=== PATIENT | male | born 1955 | race Caucasian/White ===

== ENCOUNTER → 2016-03-21 | Outpatient (CLI) | payer BC ==
[2015-12-28 07:43] VITALS: BP 134/70
[~2016-03-21] MED LIST: ASPI-482 PO; ATORVASTATIN CA80 MG PO; CONTRAST GIVEN MC PRN; CYAN10005 PO; EZET1TAB4 PO; EZET1TAB5 PO; HYDR-2666 PO; IOHEXOL 240 MG/ML 50ML VIAL. PO ONE; IOHEXOL 300 MG/ML 75 ML VIAL IV ONE; LOSA1TAB16 PO; NADO40TA PO; OLME1TAB PO; TERA5CAP3 PO
--- NOTE | 2016-03-21 10:51 | RAD ---
CT of the chest with contrast, 03/21/2016: History: Follow-up colon cancer Multidetector CT imaging was performed following an IV bolus injection of iodinated contrast material. Moderate coronary artery calcifications are present. No mediastinal or hilar adenopathy is seen. A tiny peripheral density in the lateral aspect of left upper lobe is linear in configuration and is probably a scar. No pulmonary nodule or significant infiltrate is seen. There is no evidence of pleural fluid. IMPRESSION: 1. No CT evidence of metastatic disease in the chest. 2. Moderate coronary artery disease. CT of the abdomen and pelvis with contrast, 03/21/2016: Multidetector CT imaging was performed following oral and IV administration of contrast. Comparison is made to a study from 01/23/2015. No hepatic abnormality is seen. The gallbladder is unremarkable. The pancreas shows no abnormality. The spleen is of normal size. No renal or adrenal abnormality is detected. There is moderate aortoiliac calcific plaquing without evidence of a neoplasm. No abdominal or pelvic adenopathy is seen. There passed been a partial colectomy on the right. The bowel loops are not dilated. No free fluid or free air is evident in the abdomen or pelvis. IMPRESSION: No CT evidence of metastatic disease in the abdomen or pelvis.
== END | disposition home or self-care (01) ==
LOC: CT 08:42
PROVIDERS: ATTEND Internal Medicine Hematology & Oncology
DX: C18.2 Malignant neoplasm of ascending colon (principal); I25.10 Atherosclerotic heart disease of native coronary artery without angina pectoris; I10 Essential (primary) hypertension; Z90.49 Acquired absence of other specified parts of digestive tract
CPT/HCPCS: 71260; 74177; Q9966; Q9967

== ENCOUNTER → 2017-02-10 | Outpatient (CLI) | payer BC ==
[2015-12-28 07:43] VITALS: BP 134/70
[~2017-02-10] MED LIST changes: +EZET1TAB30 PO; +EZET1TAB35 PO; -EZET1TAB4 PO; -EZET1TAB5 PO; -HYDR-2666 PO; +HYDR-2758 PO; +IOHEXOL 300 MG/ML 100ML VIAL. IV ONE; -IOHEXOL 300 MG/ML 75 ML VIAL IV ONE; -LOSA1TAB16 PO; +LOSA1TAB19 PO; -OLME1TAB PO; +OLME1TAB21 PO
--- NOTE | 2017-02-10 12:20 | RAD ---
CT study of the chest and abdomen and pelvis with contrast Clinical indications: Restaging colon cancer. Comparison: March 21, 2016. Technique: After IV infusion of 75 cc of Omnipaque 300, helical CT scanning of the chest and abdomen and pelvis was performed. GI contrast was administered per mouth. PQRS Compliance Statement: One or more of the following individualized dose reduction techniques were utilized for this examination: 1. Automated exposure control 2. Adjustment of the mA and/or kV according to patient size 3. Use of iterative reconstruction technique CHEST CT: No focal aneurysmal dilatation of the thoracic aorta is seen and no dissection is evident. No enlarging thoracic lymphadenopathy is seen. The heart size is within normal limits. Calcified atheromatous disease of the coronary arteries is seen. No pericardial effusion is seen. No lung mass or lung infiltrate is seen. No pleural effusion or pneumothorax is seen. No new lung nodule lung infiltrate is seen. The proximal bronchial tree is patent. No osteolytic process is seen. IMPRESSION: No lung metastatic disease or acute abnormality is evident. Calcified atheromatous disease of the coronary arteries. ABDOMEN AND PELVIS CT: The liver and spleen and pancreas are normal. Small radiopaque gallstone is seen within the gallbladder. No gallbladder distention or gallbladder wall thickening is seen. No biliary ductal dilatation is seen. No adrenal mass is evident. Both kidneys are normal without hydronephrosis or hydroureter or urinary tract stone. No focal aneurysmal dilatation of the abdominal aorta is seen. No enlarged abdominal or pelvic lymphadenopathy is evident. No obstructive bowel pattern is evident. No bowel thickening is evident. No free air or free fluid or mesenteric inflammatory change is seen. No osteolytic process is seen. There is a mottled appearance of the left femoral head without collapse. This may be seen with avascular necrosis. This is a new finding. IMPRESSION: No hepatic metastasis or enlarged lymphadenopathy is seen. No acute abnormality of the abdomen or pelvis. 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 Small gallstone within the gallbladder.
== END | disposition home or self-care (01) ==
LOC: CT 09:48
PROVIDERS: ATTEND Internal Medicine Hematology & Oncology
DX: C18.2 Malignant neoplasm of ascending colon (principal); M87.852 Other osteonecrosis, left femur; I70.0 Atherosclerosis of aorta
CPT/HCPCS: 71260; 74177; Q9966; Q9967

== ENCOUNTER → 2018-01-29 | Outpatient (CLI) | payer BC ==
[2015-12-28 07:43] VITALS: BP 134/70
[~2018-01-29] MED LIST changes: -CONTRAST GIVEN MC PRN; -HYDR-2758 PO; +HYDR-2761 PO
--- NOTE | 2018-01-29 10:35 | RAD ---
PQRS Compliance statement: One or more of the following individualized dose reduction techniques were utilized for this examination: 1. Automated exposure control. 2. Adjustment of the mA and/or kV according to patient size. 3. Use of iterative reconstruction technique. Indication:COLON CA follow-up. TECHNIQUE: CT chest, abdomen and pelviswith IV contrast with multiplanar reformats. COMPARISON: Previous exam from 02/10/2017 FINDINGS: Heart is normal in size. No pericardial or pleural effusion. Coronary artery calcifications. No chest adenopathy. Central airways are patent. Lungs are clear. No suspicious bony lesions in the chest. Liver, spleen, gallbladder, pancreas, adrenals and right kidney within normal limits. Punctate nonobstructing left renal stone. No enlarged retroperitoneal or pelvic adenopathy. No free pelvic fluid or ascites. Stable jessika hepatis lymph node measuring 2.5 x 1.3 cm. No bowel obstruction. Urinary bladder within normal limits. The prostate and seminal vesicles show no large mass. No suspicious bony lesion. IMPRESSION: No evidence of metastatic disease. Electronically signed by: Paco Crawley DO (01/29/2018 10:32 AM) [facility]
== END | disposition home or self-care (01) ==
LOC: CT 07:31
PROVIDERS: ATTEND Internal Medicine Hematology & Oncology
DX: Z08 Encounter for follow-up examination after completed treatment for malignant neoplasm (principal); N20.0 Calculus of kidney; I25.10 Atherosclerotic heart disease of native coronary artery without angina pectoris; Z85.038 Personal history of other malignant neoplasm of large intestine
CPT/HCPCS: 71260; 74177; Q9966; Q9967

== ENCOUNTER → 2019-01-28 | Outpatient (CLI) | payer BC ==
[2015-12-28 07:43] VITALS: BP 134/70
[~2019-01-28] MED LIST changes: +CYAN-25 PO; -CYAN10005 PO
[2019-01-28 13:59] LABS: GFR 75.2
--- NOTE | 2019-01-29 08:17 | RAD ---
CT chest with contrast, CT abdomen pelvis with contrast. HISTORY: Colon cancer CT CHEST: CT scan of the chest was done using 75 mL Omnipaque 300 contrast. Comparison is made with a prior study from January 2018. Lungs are free of infiltrates. There is a 3 mm subpleural density in the lateral left upper lobe on image 26 without change. There is a 3 mm density in the left lower lobe on image #36 without definite change. There is a 2 mm density on image #52 in the left lower lobe without change. There is no mediastinal adenopathy. Thyroid is homogeneous. There is no pleural effusion. Bony destructive process is not identified. IMPRESSION: 1. Tiny lung nodules without change. 2. No new infiltrates or nodules or evidence of metastatic disease in the chest. End impression CT abdomen pelvis CT scan the abdomen pelvis was done following the CT chest with contrast. The patient also had oral contrast. Liver is normal in appearance without a focal liver lesion. Gallbladder was normal without calcified gallstones. Spleen and adrenal glands are normal. There is a small accessory spleen. Pancreas is unremarkable. There is a 3 mm calculus at the lower pole of the left kidney. There is no renal mass or hydronephrosis. There is no retroperitoneal or periaortic adenopathy. There is no ascites. Patient's had a right hemicolectomy. IMPRESSION: 1. No liver lesion noted. 2. No abdominal or pelvic mass or adenopathy noted. 3. No significant change. PQRS Compliance Statement: One or more of the following individualized dose reduction techniques were utilized for this examination: 1. Automated exposure control 2. Adjustment of the mA and/or kV according to patient size 3. Use of iterative reconstruction technique Electronically signed by: Kb Lester MD (01/29/2019 8:14 AM) [facility]
== END | disposition home or self-care (01) ==
LOC: CT 14:12
PROVIDERS: ATTEND Internal Medicine Hematology & Oncology
DX: N20.0 Calculus of kidney (principal); R91.8 Other nonspecific abnormal finding of lung field; I10 Essential (primary) hypertension; Z85.038 Personal history of other malignant neoplasm of large intestine
CPT/HCPCS: 36415; 71260; 74177; 82565; 84520; Q9966; Q9967

== ENCOUNTER → 2019-02-04 | Day surgery (SDC) | payer BC ==
[~2019-02-04] MED LIST changes: -IOHEXOL 240 MG/ML 50ML VIAL. PO ONE; -IOHEXOL 300 MG/ML 100ML VIAL. IV ONE; +IV RINGERS,LACTATED 1000ML 1,000 ML IV ONE; +LIDOCAINE 2% PF 5 ML VIAL. ONE; +PROPOFOL 20 ML IV ONE; +TAMS0.4C97 PO
[2019-02-04 09:28] VITALS: BP 107/63
--- NOTE | 2019-02-04 09:57 | HP ---
ADMIT DATE: 02/04/2019 UPDATED HISTORY AND PHYSICAL REFERRING PHYSICIAN: Clint Vann MD REASON: History of colon cancer for surveillance. HISTORY OF PRESENT ILLNESS: A 63-year-old male whose past medical history is significant for hyperlipidemia, pernicious anemia, hypertension, BPH as well as colon cancer, status post resection, is seen for interval exam. He had a resection of the right colon in 2014. Surveillance exam in 2016 was unrevealing at that time. Weight and appetite stable. No bleeding was noted. He is otherwise without additional complaints. PAST MEDICAL HISTORY: Hyperlipidemia, hypertension, colon cancer, pernicious anemia. ALLERGIES: None. MEDICATIONS: Include aspirin, atorvastatin, vitamin B12, losartan, hydrochlorothiazide, nadolol, tamsulosin and Flomax. SOCIAL HISTORY: Social drinker, nonsmoker. FAMILY HISTORY: Significant for multiple family members with diabetes and myocardial infarctions. PAST SURGICAL HISTORY: Right hemicolectomy, appendectomy. REVIEW OF SYSTEMS: As per records. PHYSICAL EXAMINATION: GENERAL: Reveals a well-nourished, well-developed male who is alert, cooperative, in no acute distress. VITAL SIGNS: Temperature is 97.8, pulse is 89, respiratory rate is 20. LUNGS: Clear. CARDIOVASCULAR: S1, S2 without S3, S4 or appreciable murmur. ABDOMEN: Soft abdomen, normal bowel sounds, without appreciable hepatosplenomegaly. Multiple surgical incisions. EXTREMITIES: Reveals no cyanosis, clubbing or edema. IMPRESSION AND PLAN: History of colon cancer, status post right hemicolectomy. Surveillance exam is recommended at this time. Risks and benefits of procedure including risk of hemorrhage and perforation during the operation were discussed. The patient is willing to proceed. AYDE ALLAN MD DR: REGINA/torri JOB#: [id number] / [id number]
== END ==
LOC: ENDOS 07:19
PROVIDERS: ATTEND Internal Medicine Gastroenterology
DX: Z12.11 Encounter for screening for malignant neoplasm of colon (principal); K64.0 First degree hemorrhoids; K63.89 Other specified diseases of intestine; E78.5 Hyperlipidemia, unspecified; I10 Essential (primary) hypertension; D64.9 Anemia, unspecified; Z98.0 Intestinal bypass and anastomosis status; Z90.49 Acquired absence of other specified parts of digestive tract; Z85.038 Personal history of other malignant neoplasm of large intestine; Z72.89 Other problems related to lifestyle; Z98.890 Other specified postprocedural states
CPT/HCPCS: 45378; J2001; J2704

== ENCOUNTER → 2021-04-18 | Outpatient (CLI) | payer BC, OTHER ==
[2019-02-04 09:28] VITALS: BP 107/63
[~2021-04-18] MED LIST changes: -IV RINGERS,LACTATED 1000ML 1,000 ML IV ONE; -LIDOCAINE 2% PF 5 ML VIAL. ONE; -NADO40TA PO; +NADO40TA2 PO; -PROPOFOL 20 ML IV ONE
--- NOTE | 2021-04-18 16:03 | KCIC ---
RS Compliance Statement: One or more of the following individualized dose reduction techniques were utilized for this examinat ion: 1. Automated exposure control 2. Adjustment of the mA and/or kV according to patient size 3. Use of iterative reconstruction technique Coronary calcium score CT chest without contrast History: Family history of premature CAD. Technique: With retrospective electrocardiogram gating axial reconstructed noncontrast images of the chest at the level of the coronary arteries was performed. Images were post processed on workstation and calcium score calculated using the modified Agatston Janowitz protocol. Findings: Total coronary calcium score is 2457. This is an extensive plaque burden and high cardiovas cular disease risk. This is based on the calcium score of 0 of the left main coronary artery, score o f 1347.1 of the left anterior descending artery, score of 345.5 of the left circumflex artery and sc ore of 764.7 of the right coronary artery. Noncoronary findings demonstrate the great vessels are normal caliber. The cardiac size is normal, no pericardial effusion. The visualized upper abdomen is unremarkable. There is no pleural abnormality. A noncalcified pulmonary nodule is not identified. There is minimal scarring or atelectasis in the m edial right middle lobe. IMPRESSION: Patient's total calcium score is 2457. Electronically signed by: Tone Cuba MD (04/18/2021 4:01 PM) [facility]
== END ==
LOC: KCIC CT 13:38
PROVIDERS: ATTEND Internal Medicine Cardiovascular Disease
DX: I25.10 Atherosclerotic heart disease of native coronary artery without angina pectoris (principal); Z82.49 Family history of ischemic heart disease and other diseases of the circulatory system
CPT/HCPCS: 75571